=== PATIENT | male | born 1960 | race Caucasian/White ===

== ENCOUNTER 2016-11-12 12:59 | Emergency (ER) | payer SELFPAY ==
--- NOTE | 2016-11-18 10:18 | ER ---
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 He said he has had some pressure in the area as he sits for long periods of time driving between town. He is also a diabetic, who is not very committed to his drug regimen. He has high cholesterol. He had had surgery in his testicle. Hypertension, he has lost a lot of weight by watching what he ate, but he continues to smoke two packs a day. PHYSICAL EXAMINATION: VITAL SIGNS: Blood pressure 184/86, heart rate 98, respirations 14, temp is 98, and O2 sats 92%. The abscess is 5 x 4 with extension into the gael area. There is swelling and cellulitis with some fluctuant area that will be addressed with an I and D. #11 blade used, drainage obtain for culture. The area was not packed, but was relieved from pressure as serosanguineous fluid was removed and pustular fluid was removed as well. The area was dressed up with a transparent film and instructed to follow up with his primary provider. CLINICAL IMPRESSION: Left buttock abscess, diabetes mellitus type 2. He refused further labs. He did not want me to check his blood sugars. I did give him a Bactrim here in the ER and a prescription for more Bactrim for home use as well as Motrin. He used some cushion, sit on sitz bath, and follow up with his provider. I cannot stir him. I indicated that infection could be so bad that it could expand into his blood stream, so he promised that when he gets home, he will be following up with his provider. At this point, he has a drop and he does not want to be delayed any more. BAM Bass / Julius Gonzalez MD / tamannal JOB #: [id number] CC: Julius Gonzalez MD, Attending Physician Silver Solano MD, Family Physician
== END 2016-11-12 15:20 | disposition home or self-care (01) ==
LOC: ER 12:59
PROC: 0H98XZZ Drainage of Buttock Skin, External Approach (ICD-10-PCS; principal; 2016-11-12)
DX: L02.31 Cutaneous abscess of buttock (principal); F17.210 Nicotine dependence, cigarettes, uncomplicated; I10 Essential (primary) hypertension; E78.00 Pure hypercholesterolemia, unspecified; E11.9 Type 2 diabetes mellitus without complications